=== PATIENT | male | born 1965 | race Caucasian/White ===

== ENCOUNTER 2018-12-12 11:50 | Emergency (ER) | payer SELFPAY ==
--- NOTE | 2018-12-12 12:09 | EDM.PDOC ---
ED HPI GENERAL MEDICAL PROBLEM - General Chief Complaint: General Stated Complaint: MED CLEAR Time Seen by Provider: 12/12/18 11:54 Source of Information: Reports: Patient History Limitations: Reports: No Limitations - History of Present Illness INITIAL COMMENTS - FREE TEXT/NARRATIVE: HISTORY AND PHYSICAL: History of present illness: Patient is a 52-year-old male who presents to the emergency room with law enforcement for medical clearance. Patient had in getting off of the train when he fell, hitting his face. He does have an abrasion to the right upper forehead , cheek bone and right ear. He denies any loss of consciousness. 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 Patient denies any fever, chills, headache, change in vision, syncope or near syncope. Denies any chest pain, back pain, shortness of breath or cough. Denies any abdominal pain, nausea, vomiting, diarrhea, constipation or dysuria. Has not noted any blood in urine or stool. Patient has been eating and drinking appropriately. Tdap within the last 2 years. Denies any alcohol or drug abuse Review of systems: As per history of present illness and below otherwise all systems reviewed and negative. Past medical history: As per history of present illness and as reviewed below otherwise noncontributory. Surgical history: As per history of present illness and as reviewed below otherwise noncontributory. Social history: See social history for further information Family history: As per history of present illness and as reviewed below otherwise noncontributory. Physical exam: General: Well-developed and well-nourished 52-year-old male. Alert and oriented. Nontoxic appearing and in no acute distress. HEENT: Abrasions to right upper forehead, right cheekbone and right ear Nontender with palpation, normocephalic, pupils equal and reactive bilaterally, negative for conjunctival pallor or scleral icterus, mucous membranes moist, TMs normal bilaterally, throat clear, neck supple, nontender, trachea midline. No drooling or trismus noted. No meningeal signs. No hot potato voice noted. Lungs: Clear to auscultation, breath sounds equal bilaterally, chest nontender. Heart: S1S2, regular rate and rhythm without overt murmur Abdomen: Soft, nondistended, nontender. Negative for masses or hepatosplenomegaly. Negative for costovertebral tenderness. Pelvis: Stable nontender. Genitourinary: Deferred. Rectal: Deferred. C-spine/Back: No pinpoint vertebral tenderness upon palpation. No crepitus, step -offs or obvious deformities. Patient is alert and oriented. Denies any numbness , tingling or saddle paresthesias. Patient was ambulatory into the emergency room without difficulty or deficits. Denies any urinary or fecal incontinence. Skin: See HEENT. Otherwise skin is intact, warm, dry. No lesions or rashes noted. Extremities: Moves all extremities per self without difficulty or deficits, negative for cords or calf pain. Neurovascular unremarkable. Neuro: Awake, alert, oriented. Cranial nerves II through XII unremarkable. Cerebellum unremarkable. Motor and sensory unremarkable throughout. Exam nonfocal. Notes: Patient declines any imaging, including head CT. He is agreeable to wound care and bacitracin dressing. Patient will be released into custody of law enforcement. Supportive care measures were reviewed and discussed. Voices understanding and is agreeable to plan of care. Denies any further questions or concerns at this time. Diagnostics: Bedside glucose Therapeutics: Wound care, bacitracin Prescription: None Impression: Fall Abrasions Medical Clearance Plan: 1. Keep the skin clean and dry. Continue to monitor for signs of infection. Follow-up with your primary caregiver as we discussed. 2. Return to the ED as needed and as discussed. Definitive disposition and diagnosis as appropriate pending reevaluation and review of above. - Related Data Allergies Allergy/AdvReac Type Severity Reaction Status Date / Time No Known Allergies Allergy Verified 12/12/18 12:04 Home Meds: Home Meds . [No Known Home Meds] 12/26/15 [History] Past Medical History - Past Health History Medical/Surgical History: Denies Medical/Surgical History Social & Family History - Family History Family Medical History: Noncontributory ED ROS GENERAL - Review of Systems Review Of Systems: ROS reveals no pertinent complaints other than HPI. ED EXAM, GENERAL - Physical Exam Exam: See Below (See dictation) Course - Vital Signs Last Recorded V/S: Last Vital Signs Temp 97.7 F 12/12/18 12:04 Pulse 93 12/12/18 12:04 Resp 16 12/12/18 12:04 BP 159/59 H 12/12/18 12:04 Pulse Ox 97 12/12/18 12:04 - Orders/Labs/Meds Orders: Active Orders 24 hr Category Date Time Status Communication Order [RC] STAT Care 12/12/18 12:16 Active Meds: Medications Discontinued Medications Generic Name Dose Route Start Last Admin Trade Name Kyle PRN Reason Stop Dose Admin Bacitracin 2 dose 12/12/18 12:16 Bacitracin Oint 1 Gm TOP 12/12/18 12:17 ONETIME ONE Departure - Departure Time of Disposition: 12:22 Disposition: Home, Self-Care 01 Clinical Impression: Abrasion, Encounter for medical screening examination Fall Qualifiers: Encounter type: initial encounter Qualified Code(s): W19.XXXA - Unspecified fall, initial encounter - Discharge Information Referrals: PCP,Unknown [Primary Care Provider] - Forms: ED Department Discharge Additional Instructions: The following information is given to patients seen in the emergency department who are being discharged to home. This information is to outline your options for follow-up care. We provide all patients seen in our emergency department with a follow-up referral. The need for follow-up, as well as the timing and circumstances, are variable depending upon the specifics of your emergency department visit. If you don't have a primary care physician on staff, we will provide you with a referral. We always advise you to contact your personal physician following an emergency department visit to inform them of the circumstance of the visit and for follow-up with them and/or the need for any referrals to a consulting specialist. The emergency department will also refer you to a specialist when appropriate. This referral assures that you have the opportunity for follow-up care with a specialist. All of these measure are taken in an effort to provide you with optimal care, which includes your follow-up. Under all circumstances we always encourage you to contact your private physician who remains a resource for coordinating your care. When calling for follow-up care, please make the office aware that this follow-up is from your recent emergency room visit. If for any reason you are refused follow-up, please contact the [facility] Emergency Department at and asked to speak to the emergency department charge nurse. [facility] [address] [place] [id number] [facility] [address] [place] [id number] 1. Keep the skin clean and dry. Continue to monitor for signs of infection. Follow-up with your primary caregiver as we discussed. 2. Return to the ED as needed and as discussed. - My Orders Last 24 Hours: My Active Orders 12/12/18 12:16 Communication Order [RC] STAT - Assessment/Plan Last 24 Hours: My Active Orders 12/12/18 12:16 Communication Order [RC] STAT
[2018-12-12] MEDS ORDERED: Bacitracin Oint 1 GM U/D Packet TOP ONE (12:16)
[2018-12-12 13:03] VITALS: BP 156/91
== END 2018-12-12 13:03 | disposition home or self-care (01) ==
LOC: MW.ED 11:50
DX: S00.81XA Abrasion of other part of head, initial encounter (principal); S00.411A Abrasion of right ear, initial encounter; W19.XXXA Unspecified fall, initial encounter
CPT/HCPCS: 82962; 99282; 99283